=== PATIENT | male | born 1965 | race Caucasian/White ===

== ENCOUNTER 2019-06-20 12:33 | Outpatient (CLI) | payer BC, SELFPAY ==
--- NOTE | 2019-06-21 15:24 | WPDPFTINT ---
PFT Interpretation PFT Interpretation: This PFT met all criteria for ATS standards and reproducibility FEV/FVC post bronchodilator 74% FEV1 88% or 2.94 liters FVC 88% or 4.00 liters TLC 6.69 liters or 106% RV 112% RV/TLC 38% DLCO 85% when adjusted for alveolar volume but not adjusted for hemoglobin Flow volume loops showed some end expiratory coving Impression: Normal PFT. Cannot rule out reactive airway disease. Clinical correlation is advised.
== END 2019-06-20 12:34 | disposition home or self-care (01) ==
LOC: ANHPFT 12:36
PROVIDERS: PCP Family Medicine Adolescent Medicine; Visit Provider Internal Medicine Cardiovascular Disease
DX: R06.09 Other forms of dyspnea (principal)
CPT/HCPCS: 94375; 94726; 94729

== ENCOUNTER 2021-10-08 08:01 | Outpatient (CLI) | payer BC, SELFPAY ==
--- NOTE | 2021-10-08 12:31 | WPDPFTINT ---
PFT Procedure Performed PFT Procedure Performed Plethysmography (Lung Vol) Diffusing Cap (DLCO) Flow Vol Loop Spirometry w/o Bronchodil PFT Interpretation Lung volumes were measured with the body plethysmography method. Lung volumes are unremarkable. Spirometry showed normal expiratory flow rates and a normal FEV1 to FVC ratio 76%. No post bronchodilator study was carried out. Lung diffusion capacity is mildly reduced at 71% predicted. In comparison to previous study done in June of 2019, the forced vital capacity is now lower by approximately 0.6 L as is the FEV1 by approximately 0.35 L.. Lung diffusion capacity is also lower by approximately 10%. Impression: Spirometry, lung volumes within normal range. Mild reduction in lung diffusion capacity.
== END 2021-10-08 08:02 | disposition home or self-care (01) ==
PROVIDERS: PCP Family Medicine Adolescent Medicine; Visit Provider Internal Medicine Cardiovascular Disease
DX: U07.1 COVID-19 (principal); R06.00 Dyspnea, unspecified
CPT/HCPCS: 94375; 94726; 94729

== ENCOUNTER 2021-12-21 00:13 | Day surgery (SDC) | payer BC, SELFPAY ==
[2021-12-09 13:19] VITALS: BMI 31.1
--- NOTE | 2021-12-18 15:31 | PM.HPGS ---
History of Present Illness History of Present Illness Consent: Risks, benefits, and alternatives have been discussed and questions answered. Patient agrees to proceed with procedure. Chief complaint: neoplasm screening Narrative: Markos Gaviria is a 56 year old male Referred for colon cancer screening. there is no family history of colon cancer. He has occasionally pain that seems to originate from the rectal area. He did have a prostate infection recently Review of Systems Review of Systems: All systems reviewed & are unremarkable except as noted in HPI and below PMFSH Surgical History Surgical History Hx of rotator cuff surgery Family History Family History Mother COPD (chronic obstructive pulmonary disease) Other Family history of malignant neoplasm Social History Social History Smoking packs per day: 1 Smoking cigarettes per day: 20.0 Years smoked: 30 Smoking pack-years: 30.00 Smoking status: Current every day smoker Tobacco type: cigarettes Second hand tobacco smoke exposure: Yes Alcohol intake: current Substance use: never Substance use type: does not use Living arrangements: with family Gender identity (if verbalized by the patient): Male Sexual Orientation (if Verbalized by the Patient): Straight or Heterosexual Spiritual care concerns: No Agree to blood products: Yes Meds Home Medications and Allergies Home Medications Medication Instructions Recorded Confirmed Type atorvastatin 40 mg tablet 40 mg PO DAILY #30 tabs 11/04/21 12/21/21 Rx fenofibrate 160 mg tablet 160 mg PO DAILY #30 tabs 11/09/21 12/21/21 Rx aspirin 81 mg tablet,delayed 81 mg PO DAILY 11/12/21 12/21/21 History release (Adult Low Dose Aspirin) bupropion HCl 150 mg tablet,12 hr 150 mg PO BID #180 tabs 11/12/21 12/21/21 Rx sustained-release (Wellbutrin SR) propranolol 60 mg capsule,24 60 mg PO DAILY 11/12/21 12/21/21 History hr,extended release hyoscyamine sulfate 0.125 mg 0.125 mg PO QID PRN dyspepsia #20 11/13/21 12/21/21 Rx sublingual tablet tabs Allergies Allergy/AdvReac Type Severity Reaction Status Date / Time No Known Allergies Allergy Verified 12/21/21 10:17 Exam Const: General: alert Orientation/consciousness: patient oriented x3 Resp: Auscultation: clear to auscultation bilaterally Cardio: Rate: regular rate Rhythm: regular rhythm GI: GI Palp: Yes Soft to palpation and No Tenderness to palpation present (GI) Neuro: General: patient oriented x3 Assessment and Plan Assessment and plan (1) Colon cancer screening: Code(s): Z12.11 - Encounter for screening for malignant neoplasm of colon Status: Acute Assessment and Plan: Colonoscopy with possible biopsy or polypectomy or cautery or injection of substances.
[2021-12-21 10:18] VITALS: BP 130/71; PULSE 74; RESP 18; TEMP 36.4; O2SAT 100
[2021-12-21] MEDS: LACTATED RINGERS 1,000 ML 150 ML IV CONT (10:21)
--- NOTE | 2021-12-21 11:19 | WPDANESEPPF ---
Anes - Initial Pre Proc Eval Procedure: Operation Date: 12/21/21 11:30 Proposed Procedures p Screening Colonoscopy - Angelo Bonilla MD Date/Time: 12/21/21 11:19 Surgeon: Angelo Bonilla MD Pre Op Diagnosis: neoplasm screening Patient Data Age: 56 Gender: M Height: 1.73 m Weight: 91.6 kg Last Vital Signs Temp 97.6 F 12/21/21 10:18 Pulse 74 12/21/21 10:18 Resp 18 12/21/21 10:18 BP 130/71 12/21/21 10:18 Pulse Ox 100 12/21/21 10:18 O2 Del Method Room Air 12/21/21 10:18 Allergies Allergy/AdvReac Type Severity Reaction Status Date / Time No Known Allergies Allergy Verified 12/21/21 10:17 Home Medications Medication Instructions Recorded Confirmed Type atorvastatin 40 mg tablet 40 mg PO DAILY #30 tabs 11/04/21 12/21/21 Rx fenofibrate 160 mg tablet 160 mg PO DAILY #30 tabs 11/09/21 12/21/21 Rx aspirin 81 mg tablet,delayed 81 mg PO DAILY 11/12/21 12/21/21 History release (Adult Low Dose Aspirin) bupropion HCl 150 mg tablet,12 hr 150 mg PO BID #180 tabs 11/12/21 12/21/21 Rx sustained-release (Wellbutrin SR) propranolol 60 mg capsule,24 60 mg PO DAILY 11/12/21 12/21/21 History hr,extended release hyoscyamine sulfate 0.125 mg 0.125 mg PO QID PRN dyspepsia #20 11/13/21 12/21/21 Rx sublingual tablet tabs Patient hx anesthesia problems: none Family hx anesthesia problems: none Results Review: All pre-operative results and documents have been reviewed as part of the pre-operative evaluation. [facility] Surgical History Surgical History Hx of rotator cuff surgery Family History Family History Mother COPD (chronic obstructive pulmonary disease) Other Family history of malignant neoplasm Social History Social History Smoking packs per day: 1 Smoking cigarettes per day: 20.0 Years smoked: 30 Smoking pack-years: 30.00 Smoking status: Current every day smoker Tobacco type: cigarettes Second hand tobacco smoke exposure: Yes Alcohol intake: current Substance use: never Substance use type: does not use Living arrangements: with family Gender identity (if verbalized by the patient): Male Sexual Orientation (if Verbalized by the Patient): Straight or Heterosexual Spiritual care concerns: No Agree to blood products: Yes Anes - Eval Final PreProcedure Day of Procedure 12/21/21 11:19 Patient weight: obese Airway: Mallampati scale class II ASA classification: III Anesthetic plan: proceed Anesthesia type and monitoring: general GIVS and standard monitoring Results Review: All pre-operative results and documents have been reviewed as part of the pre-operative evaluation. Informed Consent: The patient's anesthetic plan and its attendant risks and benefits were discussed with the patient/family/POA. Questions were solicited and answers provided to the satisfaction of the patient/family/POA.
[2021-12-21 11:45] VITALS: BP 120/65; PULSE 58; RESP 15; O2SAT 98
[2021-12-21 11:55] VITALS: BP 116/63; PULSE 57; RESP 17; O2SAT 100
[2021-12-21 12:05] VITALS: BP 128/63; PULSE 58; RESP 15; O2SAT 100
== END 2021-12-21 12:18 | disposition home or self-care (01) ==
PROVIDERS: PCP Family Medicine Adolescent Medicine; Visit Provider Internal Medicine Gastroenterology
PROC: 0DJD8ZZ Inspection of Lower Intestinal Tract, Via Natural or Artificial Opening Endoscopic (ICD-10-PCS; CPT 45378; principal; 2021-12-21 11:30)
DX: Z12.11 Encounter for screening for malignant neoplasm of colon (principal); D12.4 Benign neoplasm of descending colon; Z79.82 Long term (current) use of aspirin; F17.210 Nicotine dependence, cigarettes, uncomplicated; E66.9 Obesity, unspecified; Z68.30 Body mass index [BMI] 30.0-30.9, adult
CPT/HCPCS: 45380; 88305; J2704; J7120

== ENCOUNTER 2022-12-04 09:28 | Outpatient (CLI) | payer BC, SELFPAY ==
--- NOTE | ~2022-12-04 | MR_ITS ---
MRI of the cervical spine Clinical History: Neck pain Technique: Axial T2-weighted and gradient images, and sagittal T1-weighted, T2-weighted, and STIR sonya ges were acquired. Findings: There is reversal normal cervical lordosis. No fracture or subluxation seen. No suspicious bone marrow signal abnormality seen. At C2-C3, there is left foraminal disc osteophyte complex with probable mild left neural foraminal na rrowing. No central canal stenosis or cord compression. Right neural foramen preserved. At C3-C4, there is disc osteophyte complex most prominent left paracentral region with left facet art hropathy, resulting in severe left neural foraminal narrowing. No anny cord compression evident. Rig ht neural foramen preserved. At C4-C5, there is disc osteophyte complex resulting in mild canal stenosis but no anny cord sriram percy. There is bilateral facet arthropathy with bilateral neural foraminal narrowing, left worse than right. At C5-C6, there is mild disc osteophyte complex, without anny canal stenosis or cord compression. Th ere is probable mild left neural foraminal narrowing. Right neural foramen preserved. At C6-C7, there is disc osteophyte complex without anny canal stenosis or cord compression. Bilatera l neural foramina are preserved. No abnormal signal seen in the spinal cord. Paravertebral soft tissues are unremarkable. Impression: Moderate degenerative spondylosis, as above. Reviewed, dictated and finalized at [facility]. Impression: Moderate degenerative spondylosis, as above.
== END 2022-12-04 09:29 | disposition home or self-care (01) ==
LOC: CHSIMG 09:30
PROVIDERS: PCP Family Medicine Adolescent Medicine; Visit Provider Nurse Practitioner Family
DX: M54.2 Cervicalgia (principal); M54.12 Radiculopathy, cervical region; M43.02 Spondylolysis, cervical region
CPT/HCPCS: 72141